=== PATIENT | female | born 1995 | race Caucasian/White ===

== ENCOUNTER 2024-01-12 14:42 | Observation (INO) ==
[2024-01-12] MEDS: Piperacillin/Tazobac 3.375 BAG 3.375 GM/100 ML BAG IV ONE (18:00)
[2024-01-12 18:19] LABS: ABS Basophils 0.1 10^3/uL (0.0-0.1); ABS Eosinophils 0.3 10^3/uL (0.0-0.5); ABS Lymphocytes 2.1 10^3/uL (1.0-4.8); ABS Monocytes 0.7 10^3/uL (0.0-0.9); ABS Neutrophils 5.5 10^3/uL (1.5-7.6); Eosinophil % 3.7 %; Hematocrit 39.8 % (35-45); Hemoglobin 13.7 g/dL (11.5-14.3); Lymphocyte % 24.6 %; Mean Corpuscular Hemoglobin 30.7 pg (27-33); Mean Corpuscular Hgb Conc 34.3 g/dL (31-36); Mean Corpuscular Volume 89.3 fL (80-97); Mean Platelet Volume 6.7 fL (7.5-11.2); Platelet Count 390 10^3/uL (150-450); Red Blood Count 4.46 10^6/uL (3.63-4.92); Red Cell Distribution Width 12.9 % (12-17); White Blood Count 8.6 10^3/uL (3.8-11.8)
[2024-01-12 19:17] LABS: ALT 24 U/L (7-52); Albumin 4.5 g/dL (3.2-5.2); Albumin/Globulin Ratio 1.5 (1-3); Alkaline Phosphatase 75 U/L (35-149); Anion Gap 9 mmol/L (2-16); Blood Urea Nitrogen 12 mg/dL (6-24); C Reactive Protein 11.74 mg/L (<8.01); CO2 Carbon Dioxide 25 mmol/L (22-32); Calcium 9.7 mg/dL (8.6-10.3); Chloride 100 mmol/L (101-111); Creatinine, Serum 0.75 mg/dL (0.51-0.95); Glucose 72 mg/dL (70-100); Sodium 134 mmol/L (135-145); Total Bilirubin 1.3 mg/dL (0.2-1.0); Total Protein 7.5 g/dL (6.4-8.9); eGFR CKD-EPI 112.5 (>60)
[2024-01-12 20:09] LABS: HCG Pregnancy < 0.60 mIU/mL
[2024-01-12] MEDS: Iohexol 300 (CONTRAST) 10 ML SDV IV ONE (20:49)
[2024-01-12] MEDS ORDERED: Al Hydrox/Mg Hydrox/Simet LIQ 30 ML UDC PO PRN (22:15)
[2024-01-12] MEDS: Piperacillin/Tazobac 3.375 BAG 3.375 GM/100 ML BAG IV SCH (23:52)
[2024-01-13 01:26] LABS: Potassium Redraw 3.7 mmol/L (3.5-5.0)
[2024-01-13 06:18] LABS: ABS Basophils 0.1 10^3/uL (0.0-0.1); ABS Eosinophils 0.4 10^3/uL (0.0-0.5); ABS Monocytes 0.8 10^3/uL (0.0-0.9); ABS Neutrophils 4.5 10^3/uL (1.5-7.6); Eosinophil % 4.5 %; Hematocrit 36.4 % (35-45); Hemoglobin 12.3 g/dL (11.5-14.3); Lymphocyte % 25.5 %; Mean Corpuscular Hemoglobin 30.4 pg (27-33); Mean Corpuscular Hgb Conc 33.8 g/dL (31-36); Mean Corpuscular Volume 89.7 fL (80-97); Mean Platelet Volume 6.5 fL (7.5-11.2); Platelet Count 362 10^3/uL (150-450); Red Blood Count 4.06 10^6/uL (3.63-4.92); Red Cell Distribution Width 12.8 % (12-17); White Blood Count 7.7 10^3/uL (3.8-11.8)
[2024-01-13 06:59] LABS: Calcium 8.9 mg/dL (8.6-10.3); Creatinine, Serum 1.02 mg/dL (0.51-0.95); eGFR CKD-EPI 77.8 (>60)
[2024-01-13] MEDS: Enoxaparin 40 MG/0.4 ML SYR SUBCUT SCH (08:10)
[2024-01-13] MEDS ORDERED: Mupirocin 2% OINT TUBE TOPICAL SCH (13:00)
[2024-01-13] MEDS: NS 0.9% 1000 ml BAG 1,000 ML IV SCH (18:09)
[2024-01-13] MEDS: Piperacillin/Tazobac 3.375 BAG 3.375 GM/100 ML BAG IV SCH (22:54)
[2024-01-14 10:21] LABS: Albumin 3.8 g/dL (3.2-5.2); Albumin/Globulin Ratio 1.7 (1-3); Calcium 8.7 mg/dL (8.6-10.3); Creatinine, Serum 0.81 mg/dL (0.51-0.95); Globulin 2.3 g/dL (2-4); Potassium 4.2 mmol/L (3.5-5.0); Total Bilirubin 1.4 mg/dL (0.2-1.0); Total Protein 6.1 g/dL (6.4-8.9); eGFR CKD-EPI 102.6 (>60)
[2024-01-14 14:33] VITALS: BP 114/77
== END 2024-01-14 18:00 | disposition home or self-care (01) ==
LOC: ED 14:42 → EDHOLD 14:42 → MED 01-13 18:37
PROVIDERS: ADMIT Internal Medicine; ATTEND Internal Medicine Hematology & Oncology